=== PATIENT | female | born 1965 | race Caucasian/White ===

== ENCOUNTER 2020-08-23 09:11 | Day surgery (SDC) | payer OTHER ==
[~2020-08-23] VITALS: Ht 170.2 cm; Wt 80.5 kg
[2020-08-23] MEDS ORDERED: PAXIL20 MG PO (09:31)
--- NOTE | 2020-08-23 11:35 | NUR ---
08/23/20 1135 Sheets,Maisha 1131 PT ARRIVED TO PACU ON 2L VIA NC, PT WAKES EASILY AND DENIES CONCERNS. VSS. 1134 O2 TURNED OFF.
--- NOTE | 2020-08-23 15:51 | NUR ---
PT ALERT, ORIENTED AND SEEMS RELAXED AND INFORMED. ALL QUESTIONS ASKED WERE ANSWERED. PT REQUESTED PRAYER. WILL FOLLOW NEEDED
--- NOTE | 2020-08-24 08:17 | OR ---
[facility] [address] [place], [place] [address] Signed DATE OF OPERATION: 08/23/2020 SURGEON: Yulisa Solo MD PREOPERATIVE DIAGNOSIS: Father with colonic polyps in his 60s and 70s. POSTOPERATIVE DIAGNOSES: 1. 4 mm polyp at 45 cm. 2. Small internal anal skin tags x2. PROCEDURE: Colonoscopy with hot biopsy. ESTIMATED BLOOD LOSS: None. INDICATIONS: Pratibha is a 55-year-old female, asked to see me for her initial screening colonoscopy. She has no lower GI complaints. Her father had colonic polyps removed in his 60s and 70s. She reminded me that her has gone through colonoscopies. In that regard, she is quite familiar with this process. I gave her a pamphlet in the office on colonoscopy. She recalls the test very nicely. She understands there is risk including, but not limited to gas bloating, crampy abdominal pain, bleeding, perforation requiring surgery, and missed diagnosis. She also understands the need for IV conscious sedation. She had expressed understanding and wished to proceed. PROCEDURE NOTE: Pratibha was taken into our endoscopy suite and placed in the left lateral decubitus position. She was given IV sedation with 6 mg of Versed and 100 mcg of fentanyl. A digital rectal exam was performed and this was unremarkable. The adult colonoscope was introduced and advanced all around into the cecum under direct visualization of camera without difficulty. Her prep was quite good. We could easily see the appendiceal orifice and the ileocecal valve. The scope was then slowly withdrawn. We took pictures throughout for photodocumentation. A single small 4 mm polyp was taken with hot biopsy forceps at 45 cm. There was no diverticulosis. The rectum was unremarkable. Upon retroflexion of the scope, she has 2 small internal anal skin tags. After this, the gas was suctioned out and the colonoscope removed. Pratibha tolerated the procedure quite well. Electronically Signed By: YULISA SOLO MD 08/24/20 0817 PATIENT NAME: PRATIBHA MITCHELL OPERATIVE REPORT DATE OF : 67 REPORT #: [id number] PHYSICIAN: YULISA SOLO MD PCP: JOMAR GAUTHIER DO REPORT IS CONFIDENTIAL AND NOT TO BE RELEASED WITHOUT AUTHORIZATION [address] [address] Signed RECOMMENDATIONS: I will see Pratibha back in my office in 7 to 14 days to review her results. I suspect she will stay on the 5-year rotation. Yulisa Solo MD ALB/JERADL /[id number] cc: MD Jomar Quintero DO Chart Filed Incomplete Copies: YULISA SOLO MD, ARIAN DO CHART FILED INCOMPLETE ~ Electronically Signed By: YULISA SOLO MD 08/24/20 0817 PATIENT NAME: PRATIBHA MITCHELL OPERATIVE REPORT DATE OF : 67 REPORT #: [id number] PHYSICIAN: YULISA SOLO MD PCP: JOMAR GAUTHIER DO REPORT IS CONFIDENTIAL AND NOT TO BE RELEASED WITHOUT AUTHORIZATION
--- NOTE | 2020-08-24 16:58 | PATH ---
[facility] [address] [facility] [place] [address] Signed SPECIMEN(S): A COLON POLYP 45 CM SPECIMEN SOURCE: A. COLON POLYP 45 CM CLINICAL HISTORY: Colon screening. MICROSCOPIC DESCRIPTION: Histologic sections of all submitted blocks are examined by light microscopy. These findings, together with the gross examination, support the pathologic diagnosis. FINAL PATHOLOGIC DIAGNOSIS: Colon, 45 cm, polypectomy: - No significant histopathology. - There is no evidence of neoplasia. COMMENT: The sections from the specimen are architecturally normal without crypt distortion. There is no acute or chronic inflammation. There are no abnormal infiltrates. There is no evidence of inflammatory, hyperplastic or adenomatous polyps. TWK:caw:C2NR GROSS DESCRIPTION: The specimen, labeled "CP," and designated on the requisition "colon polyp at 45 cm," is received in formalin and consists of one peter soft tissue fragment that measures 0.3 cm in greatest dimension. The specimen is entirely submitted in cassette (A1). AT (under the direct supervision of a pathologist) The Gross Description was prepared using a voice recognition system. The report was reviewed for accuracy; however, sound-alike word errors, addition and/or deletions may occur. If there is any question about this report, please contact Client Services. PERFORMING LABORATORY: The technical component was performed by [facility], [address] [place] [id number] ([employer]: Leila Reed MD; CLIA# [id number]). The professional interpretation was performed by [facility], [facility], [address] [place] [address]. PATIENT NAME: LORNE MITCHELL PATHOLOGY DATE OF : 67 REPORT #: [id number] PHYSICIAN: CATHY PATHOLOGY PCP: YAZAN GAUTHIER DO REPORT IS CONFIDENTIAL AND NOT TO BE RELEASED WITHOUT AUTHORIZATION [facility] [address] [place] [place] [address] Signed Diagnostician: Pa Aguila MD Pathologist Electronically Signed 08/24/2020 Copies: ~ PATIENT NAME: LORNE MITCHELL PATHOLOGY DATE OF : 67 REPORT #: [id number] PHYSICIAN: CATHY PATHOLOGY PCP: YAZAN GAUTHIER DO REPORT IS CONFIDENTIAL AND NOT TO BE RELEASED WITHOUT AUTHORIZATION
== END 2020-08-23 11:57 | disposition home or self-care (01) ==
LOC: OPS 09:11 → DS 08-25 09:00
PROVIDERS: ATTEND Colon & Rectal Surgery
PROC: 0DBE8ZZ Excision of Large Intestine, Via Natural or Artificial Opening Endoscopic (ICD-10-PCS; principal; 2020-08-23 10:30)
DX: Z12.11 Encounter for screening for malignant neoplasm of colon (principal); K63.5 Polyp of colon; K64.4 Residual hemorrhoidal skin tags; Z83.71 Family history of colonic polyps
CPT/HCPCS: 99153; G0500; J2250; J3010; J7121